=== PATIENT | female | born 1955 | race Caucasian/White ===

== ENCOUNTER → 2020-02-16 | Outpatient (CLI) | payer BC ==
[~2020-02-16] MED LIST: AMLODIPINE10 MG PO; ASPIRIN81 M1 PO; COUMADIN5 M2 PO; FLUOXETINE40 MG PO; HYDROCHLOROTHIA25 MG PO; HYDROCODONE BIT1 T11 PO; METOPROLOL SR100 MG PO; MOTRIN800 MG PO; MULTIPLE VITAMI1 TA2 PO; NAPROSYN500 MG PO; NORVASC10 MG PO; PROZAC; ULTRAM50 MG PO; VITAMIN D1000 IU PO
== END | disposition home or self-care (01) ==
LOC: COVID19 15:29
PROVIDERS: ATTEND Internal Medicine
DX: U07.1 COVID-19 (principal)

== ENCOUNTER → 2021-11-15 | Outpatient (CLI) | payer BC ==
[2021-11-15 12:44] LABS: BUN 12 mg/dl (7-24); CHLORIDE 110 mmol/L (98-107); CREATININE 0.79 mg/dL (0.55-1.02); POTASSIUM 4.1 mmol/L (3.5-5.1); SODIUM 144 mmol/L (136-145)
[2021-11-16 05:06] LABS: IMMUNOGLOBULIN G, QNT 683 mg/dL (586-1602); IMMUNOGLOBULIN M, QNT 41 mg/dL (26-217)
== END | disposition home or self-care (01) ==
LOC: LAB 11:48
PROVIDERS: Internal Medicine; ATTEND Internal Medicine Hematology & Oncology
DX: D80.1 Nonfamilial hypogammaglobulinemia (principal); M06.9 Rheumatoid arthritis, unspecified